=== PATIENT | male | born 1975 | race Caucasian/White ===

== ENCOUNTER → 2019-05-23 | Outpatient (CLI) | payer BC ==
[2019-05-23 19:27] LABS: Anion Gap 7 mmol/L (6-16); Blood Urea Nitrogen 19 mg/dL (8-24); Bun/Creatinine Ratio 21.7 (12.0-20.0); CO2, Blood 26 mmol/L (21-32); Calcium, Blood 8.8 mg/dL (8.5-10.1); Chloride, Blood 104 mmol/L (98-108); Creatinine, Blood 0.88 mg/dL (0.60-1.20); Glomerular Filtration Rate >60 (60-); Glucose, Blood 84 mg/dL (70-99); Potassium, Blood 3.8 mmol/L (3.5-5.5); Sodium, Blood 137 mmol/L (136-145)
== END ==
LOC: LAB 17:59 → LAB SHORT 17:59
PROVIDERS: Registered Nurse
DX: E11.9 Type 2 diabetes mellitus without complications (principal); E66.9 Obesity, unspecified; R73.9 Hyperglycemia, unspecified
CPT/HCPCS: 80048; 83036

== ENCOUNTER 2020-06-05 13:33 | Day surgery (SDC) | payer OTHER, BC ==
[~2020-06-05] VITALS: Ht 170.2 cm; Wt 116.3 kg
[~2020-06-05 13:33] MED LIST: METFORMIN HCL500 M2 PO
[2020-06-05] MEDS ORDERED: CITALOPRAM HBR20 MG PO (13:51)
--- NOTE | 2020-06-05 15:46 | NUR ---
06/05/20 1546 Shira Lizarraga 1CC EPI/EACH ADDED INTO FIRST THREE BAGS OF LR.
== END 2020-06-05 17:09 | disposition home or self-care (01) ==
LOC: ORSCSDS 13:33
PROVIDERS: Orthopaedic Surgery
PROC: 0SBD4ZZ Excision of Left Knee Joint, Percutaneous Endoscopic Approach (ICD-10-PCS; principal; 2020-06-05 14:45)
DX: M17.12 Unilateral primary osteoarthritis, left knee (principal); M94.262 Chondromalacia, left knee; M25.862 Other specified joint disorders, left knee; G47.33 Obstructive sleep apnea (adult) (pediatric); E11.9 Type 2 diabetes mellitus without complications; F84.0 Autistic disorder; E66.01 Morbid (severe) obesity due to excess calories; Z68.41 Body mass index [BMI] 40.0-44.9, adult; Z79.84 Long term (current) use of oral hypoglycemic drugs
CPT/HCPCS: 82947; J0171; J1100; J2250; J2405; J2704; J2795; J3010; J7120

== ENCOUNTER 2022-02-17 14:18 | Emergency (ER) | payer OTHER, BC ==
[~2022-02-17 14:18] MED LIST changes: +CITALOPRAM HBR20 MG PO
[2022-02-17] MEDS ORDERED: Cleocin HCl150 MG PO (21:32)
[2022-02-17] MEDS ORDERED: Percocet 5-3251 EACH PO (21:32)
== END 2022-02-17 22:08 | disposition home or self-care (01) ==
LOC: ER 14:18
DX: S62.634B Displaced fracture of distal phalanx of right ring finger, initial encounter for open fracture (principal); W20.8XXA Other cause of strike by thrown, projected or falling object, initial encounter; Z88.0 Allergy status to penicillin
CPT/HCPCS: 73130; 90714; A9270; J1885

== ENCOUNTER 2022-03-01 09:22 | Emergency (ER) | payer OTHER, BC ==
[~2022-03-01] VITALS: Ht 170.2 cm; Wt 104.3 kg
[~2022-03-01 09:22] MED LIST changes: +Cleocin HCl150 MG PO; +Percocet 5-3251 EACH PO
== END 2022-03-01 10:08 | disposition home or self-care (01) ==
LOC: ER 09:22
DX: Z48.02 Encounter for removal of sutures (principal); Z88.0 Allergy status to penicillin; Z79.899 Other long term (current) drug therapy; Z79.84 Long term (current) use of oral hypoglycemic drugs
CPT/HCPCS: 99281

== ENCOUNTER 2022-09-09 15:11 | Emergency (ER) | payer SELFPAY ==
[~2022-09-09] VITALS: Ht 170.2 cm; Wt 102.1 kg
[2022-09-09 17:43] LABS: BASOPHILS ABSOLUTE AUTO 0.04 K/mm3 (0.00-0.23); BASOPHILS PERCENT AUTO 0 % (0-2); EOSINOPHILS ABSOLUTE AUTO 0.14 K/mm3 (0.00-0.68); EOSINOPHILS PERCENT AUTO 1 % (0-6); Hematocrit 43.9 % (37.0-53.0); Hemoglobin 15.3 g/dL (13.5-17.5); IMMATURE GRAN ABSOLUTE AUTO 0.08 K/mm3 (0.00-0.10); IMMATURE GRAN PERCENT AUTO 1 % (0-1); LYMPHOCYTES PERCENT AUTO 17 % (21-46); MONOCYTES ABSOLUTE AUTO 0.67 K/mm3 (0.16-1.47); MONOCYTES PERCENT AUTO 7 % (4-13); Mean Corpuscular HGB 28.7 pg (26.0-34.0); Mean Corpuscular HGB Conc 34.9 g/dL (31.5-36.5); Mean Corpuscular Volume 82 fL (80-100); NEUTROPHILS ABSOLUTE AUTO 7.21 K/mm3 (1.96-9.15); NEUTROPHILS PERCENT AUTO 73 % (41-73); Platelet Count 192 K/mm3 (150-400); RDW Coefficient Variation 12.9 % (11.7-14.2); RDW Standard Deviation 38.1 fL (35.1-46.3); Red Blood Cell Count 5.34 M/mm3 (4.30-5.90); White Blood Cell Count 9.84 K/mm3 (4.00-11.30)
[2022-09-09 18:08] LABS: Albumin/Globulin Ratio 1.2 (0.8-1.8); Bilirubin, Total 0.5 mg/dL (0.1-1.0); Bun/Creatinine Ratio 31.5 (12.0-20.0); Calcium, Blood 9.6 mg/dL (8.5-10.1); Creatinine, Blood 0.67 mg/dL (0.60-1.20); Globulin, Blood 3.3 g/dL (2.2-4.0); Potassium, Blood 4.5 mmol/L (3.5-5.5); Total Protein, Blood 7.3 g/dL (6.4-8.2)
[2022-09-09] MEDS ORDERED: PRED20 PO (22:30)
== END 2022-09-09 22:45 | disposition home or self-care (01) ==
LOC: ER 15:11
PROVIDERS: Student in an Organized Health Care Education/Training Program
DX: G51.0 Bell's palsy (principal); Z88.0 Allergy status to penicillin; Z79.899 Other long term (current) drug therapy
CPT/HCPCS: 36415; 70450; 80053; 85025; 93005; 93010; 96361; 96374; 96375; 99284-25; A9270; J0780; J1885; J7030

== ENCOUNTER → 2023-08-10 | Outpatient (CLI) | payer SELFPAY ==
[~2023-08-10] MED LIST changes: +PRED20 PO
[2023-08-10 17:50] LABS: CHOL/HDL RATIO 3.1; Cholesterol 148 mg/dL (50-200); HDL Cholesterol 48 mg/dL (>39); LDL/HDL RATIO 1.6; Low Density Lipoprotein Chol 79 mg/dL (0-110); Triglycerides 106 mg/dL (30-160); Very Low Density Lipoprot Chol 21 mg/dL (6-32)
[2023-08-12 07:59] LABS: HEPATITIS C AB CIA INTERP Negative (Negative); HEPATITIS C ANTIBODY CIA INDEX 0.17 IV
[2023-08-12 08:10] LABS: A/G RATIO 2.1 (1.2-2.2); BILIRUBIN, TOTAL 0.6 mg/dL (0.0-1.2); CALCIUM, SERUM 9.3 mg/dL (8.7-10.2); CREATININE, SERUM 0.79 mg/dL (0.76-1.27); GLOBULIN, TOTAL 2.1 g/dL (1.5-4.5); POTASSIUM, SERUM 4.7 mmol/L (3.5-5.2); PROTEIN, TOTAL, SERUM 6.5 g/dL (6.0-8.5)
== END | disposition home or self-care (01) ==
LOC: LAB SHORT 16:35
PROVIDERS: Nurse Practitioner Family
DX: E11.9 Type 2 diabetes mellitus without complications (principal); E66.9 Obesity, unspecified; G47.30 Sleep apnea, unspecified
CPT/HCPCS: 80053; 80061; 83036; 84443; 86803